=== PATIENT | male | born 1975 | race African-American/Black ===

== ENCOUNTER 2017-02-24 04:50 | Inpatient (IN) | payer SELFPAY ==
[~2017-02-24] VITALS: Ht 190.5 cm; Wt 141.8 kg
[2017-02-24 06:07] LABS: HEMATOCRIT 43.2 % (38.0-50.0); MCH 29.8 PG (29.0-34.0); MCHC 34.3 G/DL (30.0-36.0); MCV 87.1 FL (86-99); MEAN PLAT.VOLUME 9.5 uM^3 (9.0-12.4); PLATELET COUNT 172 K/uL (156-360); RBC DIS.WIDTH-CV 12.3 % (11.8-14.6); RED BLOOD COUNT 4.96 M/uL (4.00-5.50); WHITE BLOOD COUNT 5.3 K/uL (4.1-10.2)
[2017-02-24 06:18] LABS: CHLORIDE 98 mEq/L (99-109); POTASSIUM 4.9 mEq/L (3.7-5.4); SODIUM 130 mEq/L (136-147)
[2017-02-24 06:22] LABS: ANION GAP 10 MEQ/L (2-14)
[2017-02-24 06:25] LABS: UREA NITROGEN (BUN) 21 mg/dL (9-23)
[2017-02-24 06:31] LABS: GLUCOSE 529 mg/dL (70-99)
[2017-02-24 06:32] LABS: GFR ESTIMATE (CALCULATED) 30 mL/min/
[2017-02-24 07:21] LABS: CARBON DIOXIDE (BICARBONATE) 25.6 MEQ/L (20-31)
[2017-02-24 08:22] LABS: Estimated Average Glucose 384 mg/dL (70-123)
[2017-02-24 08:38] LABS: ADD MIUA? YES; BILIRUBIN NEGATIVE; BLOOD SMALL; COLOR STRAW ((YELLOW)); GLUCOSE (STRIP) >=500; KETONES NEGATIVE; LEUKOCYTES NEGATIVE; NITRITE NEGATIVE; PROTEIN (STRIP) NEGATIVE; SPECIFIC GRAVITY 1.022 (1.000-1.030); UROBILINOGEN 0.2 MG/DL (0.2-1.0)
[2017-02-24 08:41] LABS: POINT-OF-CARE METER ID UU13113702
[2017-02-24 08:57] LABS: BACTERIA NONE SEEN /HPF; EPITHELIAL CELLS RARE /HPF; MUCUS TRACE /LPF; RED BLOOD CELLS 0-5 /HPF (0-5); UCUL ADDED? NO; WHITE BLOOD CELLS 0-5 /HPF (0-5)
[2017-02-24 09:52] LABS: HDL CHOLESTEROL 31 MG/DL (Desirable>=40); NON-HDL CHOLESTEROL 187 mg/dL (Desirable<160); TOTAL CHOLESTEROL 218 mg/dL (Desirable<200); TRIGLYCERIDES 557 MG/DL (Normal: <150)
[2017-02-24 09:58] VITALS: BP 128/78
[2017-02-24 10:25] VITALS: BP 128/78
[2017-02-24 16:33] VITALS: BP 121/76
[2017-02-24 19:49] VITALS: BP 151/91
[2017-02-24 23:30] VITALS: BP 134/86
[2017-02-25 03:41] VITALS: BP 132/79
[2017-02-25 07:05] LABS: ANION GAP 6 MEQ/L (2-14); CHLORIDE 104 MEQ/L (99-109); GFR ESTIMATE (CALCULATED) > 59 mL/min/; POTASSIUM 4.2 MEQ/L (3.7-5.4); SAMPLE HEMOLYSIS CHECK 0; SAMPLE ICTERIC CHECK 0; SAMPLE LIPEMIA CHECK 0; SODIUM 134 MEQ/L (136-147); UREA NITROGEN (BUN) 16 mg/dL (9-23)
[2017-02-25 07:11] LABS: GLUCOSE 155 mg/dL (70-99)
[2017-02-25 07:21] LABS: POINT-OF-CARE METER ID UU14188577
[2017-02-25 08:31] VITALS: BP 132/77
[2017-02-25 12:00] LABS: COMMENTS - BLOOD GASES A+C+; DEVICE RA; FI02 21 %; SITE LRA
[2017-02-25 12:01] LABS: BASE EXCESS -1.2 mEq/L (-3 to +3); BICARBONATE 23.6 mEq/L (22-26); CARBOXY HGB 3.2 % (0-5); HEMOGLOBIN 14.8 (12.5-16.6); METHEMOGLOBIN 1.3 % (0-1.5); PCO2 39 mm Hg (35-45); PO2 81 mm Hg (80-100); pH 7.39 (7.35-7.45)
[2017-02-25 12:25] VITALS: BP 130/78
[2017-02-25] MEDS ORDERED: NOVOLOG PE100 UNITS/ SC ×2 (12:38→13:09)
[2017-02-25] MEDS ORDERED: NICOTINE PATCH1 EAC2 TD (12:38)
[2017-02-25] MEDS ORDERED: LEVEMIR100 UNIT/2 SC ×2 (12:38→13:09)
[2017-02-25] MEDS ORDERED: ATORVASTATIN CA40 MG PO (12:38)
[2017-02-25] MEDS ORDERED: GLUCOMETER MC (13:16)
[2017-02-25] MEDS ORDERED: TEST STRIPS MC (13:16)
[2017-02-25] MEDS ORDERED: LANCETS1 EACH MC (13:17)
[2017-02-25] MEDS ORDERED: NOVOLIN,HU100 UNITS/ SC (14:11)
[2017-02-25 14:58] LABS: ANION GAP 6 MEQ/L (2-14); CHLORIDE 105 MEQ/L (99-109); POTASSIUM 4.2 MEQ/L (3.7-5.4); SAMPLE HEMOLYSIS CHECK 0; SAMPLE ICTERIC CHECK 0; SAMPLE LIPEMIA CHECK 0; SODIUM 133 MEQ/L (136-147)
[2017-02-25 15:04] LABS: GFR ESTIMATE (CALCULATED) > 59 mL/min/; UREA NITROGEN (BUN) 14 mg/dL (9-23)
[2017-02-25 15:05] LABS: GLUCOSE 279 mg/dL (70-99)
[2017-02-25 15:43] VITALS: BP 128/77
[2017-02-25] MEDS ORDERED: [UNRECOGNIZED DRUG - SUPPLY] MC (15:44)
[2017-02-27 12:37] LABS: POINT-OF-CARE METER ID UU14188577
== END 2017-02-25 16:35 | disposition home or self-care (01) | DRG 684 ==
LOC: EME 04:50 → EDOF 07:44 → 3EAST 09:11
PROVIDERS: Emergency Medicine; Internal Medicine; Physician Assistant
DX: N17.9 Acute kidney failure, unspecified (principal); E86.0 Dehydration; R81 Glycosuria; E11.65 Type 2 diabetes mellitus with hyperglycemia; E78.5 Hyperlipidemia, unspecified; M47.812 Spondylosis without myelopathy or radiculopathy, cervical region; M50.30 Other cervical disc degeneration, unspecified cervical region; F12.90 Cannabis use, unspecified, uncomplicated; F17.210 Nicotine dependence, cigarettes, uncomplicated; E66.9 Obesity, unspecified; Z68.39 Body mass index [BMI] 39.0-39.9, adult; Z91.14 Patient's other noncompliance with medication regimen; Z79.84 Long term (current) use of oral hypoglycemic drugs
CPT/HCPCS: 36600; 70450; 72125; 76770; 80048; 80048 91; 80061; 81003; 82010; 82803; 82948; 83036; 84443; 85027; 99281; 99285; J1815; J7030